=== PATIENT | male | born 1960 | race Caucasian/White ===

== ENCOUNTER 2022-05-08 07:42 | Outpatient (REF) | payer BC, SELFPAY ==
[2022-05-08 11:10] LABS: Hematocrit 43.9 % (42.0-52.0); Hemoglobin 15.3 g/dl (14.0-18.0); Mean Corpuscular HGB Conc 34.9 g/dl (31.0-36.0); Mean Corpuscular Hemoglobin 33.3 pg (27.0-33.0); Mean Corpuscular Volume 95.6 fL (80.0-98.0); Mean Platelet Volume 9.6 fL (9.4-12.4); Platelet Count 230 X10*3/uL (160-400); Red Blood Count 4.59 X10*6/uL (4.60-5.80); Red Cell Distribution Width 12.6 % (11.0-16.0); White Blood Count 6.8 X10*3/uL (4.8-10.8)
[2022-05-08 11:36] LABS: Alanine Aminotransferase 24 U/L (0-40); Albumin Level 4.2 g/dL (3.5-5.0); Alkaline Phosphatase 67 U/L (39-117); Anion Gap 14 (12-20); Aspartate Amino Transferase 18 U/L (5-37); Bilirubin Total 0.7 mg/dL (0.0-1.0); Blood Urea Nitrogen 16 mg/dL (9-16); Calcium 8.7 mg/dL (8.4-10.2); Carbon Dioxide 24 mmol/L (22-29); Chloride 108 mmol/L (96-108); Cholesterol 197 mg/dL; Estimated Glomerular Filt Rate > 60; Glucose Fasting 95 mg/dL (60-99); HDL Cholesterol 51 mg/dL; LDL Cholesterol Calculated 121 mg/dl; Potassium 4.5 mmol/L (3.3-5.1); Sodium 141 mmol/L (135-145); Total Protein 6.4 g/dL (6.5-8.0); Triglycerides 127 mg/dL
[2022-05-08 11:43] LABS: TSH reflex Free T4 1.42 uIU/mL (0.32-4.0); Vitamin D 25-OH Total 17.9 ng/mL (>30)
[2022-05-15 02:14] LABS: PSA, Ultra Sensitive 1.31 ng/mL
== END 2022-05-08 07:43 | disposition home or self-care (01) ==
LOC: HO.WFDLDS 07:42
PROVIDERS: Visit Provider Nurse Practitioner Family
DX: Z00.00 Encounter for general adult medical examination without abnormal findings (principal); Z12.5 Encounter for screening for malignant neoplasm of prostate
CPT/HCPCS: 36415; 80053; 80061; 82306; 84153; 84443; 85027

== ENCOUNTER 2022-10-08 08:00 | Outpatient (AMB) | payer BC, SELFPAY ==
--- NOTE | 2022-10-08 08:04 | A.OFFVIS_ITS ---
Intake Vital Signs 10/08/22 08:06 Height 6 ft Weight 228 lb BMI 30.9 BP 124/74 Blood Pressure Location Lt brachial Position Sitting Pulse 78 Intake Visit Reasons: colonoscopy screening Intake Note: Patient new consult for 2nd pre colonoscopy screening Patient denies any GI issues. 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 No weight loss PFSH Social History (Updated 10/08/22 @ 08:55 by Noni Chilel PA-C) Household Members Other:: 3 adult children Alcohol intake: current Tobacco use type: Cigar Current occupational status: employed Cognitive needs: No Hearing needs: No Vision needs: No Review of Systems Const All systems reviewed & are unremarkable except as noted in HPI and below Card Denies chest pain and Reports dyspnea on exertion Resp Reports chest congestion, Reports cough and Reports dyspnea on exertion GI Denies abdominal pain, Denies hematochezia, Denies change in bowel habits, Denie s heartburn, Denies nausea and Denies vomiting Physical Exam Vital Signs: Last Vital Signs Pulse 78 10/08/22 08:06 BP 124/74 10/08/22 08:06 BMI result Body Mass Index 30.9 Const General: cooperative, healthy appearing, comfortable and no acute distress Orientation/consciousness: patient oriented x3 Limitations: no limitations Eyes Sclerae: sclerae normal Resp Effort & Inspection: normal respiratory effort and able to speak in complete sentences Auscultation: rhonchi and no wheezes Cardio Rate: regular rate Rhythm: regular rhythm Heart sounds: S1 normal heart sound present and S2 normal heart sound present GI Palpation (GI): Soft to palpation and nontender Auscultation: normal bowel sounds Skin General skin exam: no rashes or lesions noted Neuro General: patient oriented x3 Extrem General: Yes full ROM Psych Appearance: grossly normal and well kempt Mental Status: mental status grossly normal Speech and movement: Normal speech and movement present and Clear speech present Affect: normal affect Attitude: cooperative Thought process: Normal thought process present Thought content: Normal thought content present Insight: Good insight present (Psych) Judgement: Good judgement present (Psych) Assessment & Plan Assessment & Plan (1) Encounter for screening colonoscopy: Comment: No GI complaint Code(s): Z12.11 - Encounter for screening for malignant neoplasm of colon Plan: Screening colonoscopy may need Anesthesia consult, MiraLax Gatorade prep- (2) Cough: Comment: Chronic cough Code(s): R05.9 - Cough, unspecified (3) SOB (shortness of breath): Comment: Intermittent shortness of breath-chest congestion-rhonchi on exam no wheezing Code(s): R06.02 - Shortness of breath Plan: CXR-will inform PCP, Myrna results available for review-(hopefully agreeable) Plan CXR-if clear proceed with- Screening colonoscopy, MiraLax Gatorade Patient Instructions: Very pleasant 62-year-old male referred for screening colonoscopy presents with chronic cough, shortness of breath on exertion, intermittent chest congestion. He does admit to anxiety when symptoms occur-however will get chest x-ray to be sure clear as he will be scheduled for screening colonoscopy-him to assure he is not at risk with anesthesia. Discussed procedure, risks, need for escort due to anesthesia as well as prep instructions Encouraged to follow-up with PCP-certainly with any worsening symptoms Call with any questions or concerns Appreciate the opportunity to assist in care of this pleasant Coding Level of Care Code New Pt Level 4 (55054) Diagnoses Encounter for screening colonoscopy Z12.11 Cough R05.9 SOB (shortness of breath) R06.02 Time Spent (min) 35
[2022-10-08 08:06] VITALS: BP 124/74; PULSE 78; BMI 30.9
== END 2022-10-09 14:51 | disposition home or self-care (01) ==
LOC: HO.HGIW 08:00
PROVIDERS: PCP Nurse Practitioner Family; Visit Provider Physician Assistant
DX: Z01.818 Encounter for other preprocedural examination (principal); Z12.11 Encounter for screening for malignant neoplasm of colon; R05.9 Cough, unspecified; R06.02 Shortness of breath
CPT/HCPCS: S0285

== ENCOUNTER → 2022-10-08 08:00 | Outpatient (BNVA) | payer BC, SELFPAY | PROVIDERS: PCP Nurse Practitioner Family; Visit Provider Physician Assistant ==

== ENCOUNTER 2022-11-06 08:52 | Outpatient (AMB) | payer BC, SELFPAY ==
[2022-11-06 08:56] VITALS: BP 138/84; PULSE 70; RESP 12; TEMP 36.2; O2SAT 99; BMI 31.6
--- NOTE | 2022-11-06 08:56 | MHC.PC.OV ---
Vital Signs 11/06/22 08:56 Height 6 ft Weight 233 lb 2 oz BMI 31.6 BP 138/84 Blood Pressure Location Rt brachial Position Sitting Respiration 12 Pulse 70 Pulse Source Pulse Oximeter Temp 97.1 F Temp Source Temporal Artery Scan Pulse Oximetry (%) 99 Oxygen Delivery Method Room Air Intake Visit Reasons: 6 months health maintenance Intake Note: Patient states that he has swelling in palms of hands and now his hands are starting to lock and sometimes it feels like he cant unlock them. Patient states that once they start to lock he unlocks them with the opposite hand. Patient believes its some type of arthritis. 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 Required: No Accompanied by: Self / Same As Patient Allergies No Known Allergies Allergy (Verified 11/06/22 09:25) Medication List - Last Reconciled 11/06/22 by Tati Rodriguez CNP No Known Home Meds Tobacco use date assessed: 05/07/22 Dental Screening Dental Screen Date: 11/06/22 Did you have a dental visit in the last 12 months?: No Did you have a dental problem in the last 6 months where you did not have access to dental care?: No Was dental information given to patient?: Patient has dentist HPI HPI Comments History of Present Illness Details 62-year-old male presents for health maintenance. He established care on 05/07/2022. He was seen by GI on 10/08/2022. He reported using OTC inhaler for chronic cough which started after he had covid x 2 between 2019 - 2020. He reported associated intermittent SOBOE, some days worse than others. He requested chest x-ray. GI plan: GI to proceed with colonoscopy if chest x-ray is normal. He reports continued intermitted cough with clear cough for the past 6 months. He has been smoking 1 cigar daily. He states he cut down on drinking and currently drinks 3 glasses of alcoholic beverages 2-3 times weekly. He reports intermittent swelling of his palms and pain and locking of his right 4th digit. Tylenol provides pain relief. He denies tingling, numbness, or loss of sensation. 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 Lee Pavon, Kim Altamirano, Alonso Thurston and colleagues, with an educational teresita from [employer]. Review of Systems Const Details: Const Denies chills, Denies fatigue, Denies fever(s), Denies headache(s) and Denies weakness ENT Denies dizziness and Denies headache(s) Card Denies chest pain, Denies lightheadedness, Denies dyspnea and Denies other (Palpitations) Resp Denies cough, Denies dyspnea, Denies wheezing and Denies other ( shortness of breath) GI Denies abdominal pain, Denies melena, Denies hematochezia, Denies change in bowel habits, Denies dyspepsia and Denies nausea Denies hematuria and Denies dysuria Musc Reports as per HPI Skin/Breast Denies rash, Denies unusual bruising and Denies wounds Neuro Denies abnormal gait, Denies dizziness, Denies headache(s), Denies memory loss, Denies numbness, Denies Sensory deficit (Neuro), Denies tingling and Denies weakness Psych Denies anxiety, Denies depression, Denies memory loss Endo Denies cold intolerance, Denies fatigue, Denies heat intolerance, Denies polydipsia and Denies polyuria Aller/Immun Denies wheezing Physical exam (Primary Care) Vital Signs: Last Vital Signs Temp 97.1 F 11/06/22 08:56 Pulse 70 11/06/22 08:56 Resp 12 11/06/22 08:56 BP 138/84 11/06/22 08:56 Pulse Ox 99 11/06/22 08:56 Oxygen Delivery Method Room Air 11/06/22 08:56 BMI result Body Mass Index 31.6 Tobacco/Smoking Status: Tobacco use Status Tobacco use date assessed 05/07/22 11/06/22 09:03 Patient Tobacco Use Status Former Tobacco user 11/06/22 09:07 Tobacco use type Cigar 11/06/22 09:03 e-Cigarette/Vaping Use Never Used 11/06/22 09:07 Thrive Assessment: Date of Thrive Assessment Date Thrive assessed 05/07/22 11/06/22 09:03 Const Other: General: no acute distress and well developed Nutritional Appearance: well nourished Orientation/consciousness: patient oriented x3 HENMT Head: Yes normocephalic and Yes atraumatic Eyes General: appearance normal, both eyes and all related structures Pupils: Equal, round and reactive pupils present EOM: EOMs intact bilaterally Resp Effort & Inspection: normal respiratory effort Auscultation: clear to auscultation bilaterally Cardio Rate: regular rate Rhythm: regular rhythm Heart sounds: S1 normal heart sound present, S2 normal heart sound present, no gallops, no murmurs and no rubs GI Palpation (GI): No Abdominal aortic bruit present, Soft to palpation, nontender, No hepatosplenomegaly present and No Rebound tenderness present Auscultation: normal bowel sounds General: Yes no CVA tenderness Back/Spine/Pelvis Back: no CVA tenderness Cervical Spine: cervical ROM normal and No Cervical spine tenderness Thoracic/Lumbar Spine: thoraco-lumbar ROM normal, No pain with thoraco-lumbar ROM, No thoracic spinal tenderness and No lumbar spinal tenderness Extrem General: Yes normal to inspection, and No calf tenderness. Mild edema to the palms immediately below the 2nd to 5th digits. Skin General: warm and dry. Normal skin color. Normal skin turgor Lesions: no lesions Rashes: no rashes Trauma: no lacerations or abrasions Wounds: no wounds Nails: normal Neuro General: patient oriented x3, gait normal and no focal neuro deficit Cranial nerves: Yes Equal, round and reactive pupils present Cognition (Neuro): normal cognition Gait exam (Neuro): Normal gait present Sensory Exam: No Sensory deficit (Neuro) Psych Appearance: grossly normal Affect: normal affect Attitude: cooperative Thought process: Normal thought process present Assessment and Plan Assessment & Plan (1) Cough: Comment: Chronic cough Code(s): R05.9 - Cough, unspecified Plan: He reports continued intermitted cough with clear cough for the past 6 months. He has been smoking 1 cigar daily. Lung sounds clear and equal bilaterally Ventolin ordered. Use as prescribed Chest x-ray ordered. Advised to contact GI for colonoscopy after getting chest x-ray done Encouraged to smoke smoking cigar Recent lab results reviewed with the patient Follow-up in 6 months for complete physical exam Return sooner with worsening or new symptoms Verbalized understanding and agreed with treatment plan. (2) Bilateral hand pain: Code(s): M79.641 - Pain in right hand; M79.642 - Pain in left hand Plan: He reports intermittent swelling of his palms and pain and locking of his right 4th digit. Mild edema to the palms immediately below the 2nd to 5th digits. Likely degenerative changes or arthritis May take Tylenol ibuprofen for pain or discomfort Warm/cold compresses encouraged Referred to Ortho Return with new or worsening signs and symptoms Verbalized understanding and agreed with treatment plan. Orders: Orders XR chest 2V Today R05.9 - Cough, unspecified Referrals Orthopedics Referral M79.641 - Pain in right hand, M79.642 - Pain in left hand Medications: New albuterol sulfate 90 mcg/actuation (Ventolin HFA) 2 puffs inhalation Q4-6H PRN 8.5 grams 3RF shortness of breath or wheezing Coding Level of Care Code Est Pt Level 4 (12030) Diagnoses Cough R05.9 Bilateral hand pain M79.641; M79.642
== END 2022-11-06 09:47 | disposition home or self-care (01) ==
PROVIDERS: PCP Nurse Practitioner Family; Visit Provider Nurse Practitioner Family
DX: R05.9 Cough, unspecified (principal); M79.641 Pain in right hand; M79.642 Pain in left hand
CPT/HCPCS: 99214

== ENCOUNTER 2022-11-11 10:56 | Outpatient (REF) | payer BC, SELFPAY ==
--- NOTE | ~2022-11-11 | XR_ITS ---
EXAMINATION: XR CHEST 2 VIEWS CLINICAL INFORMATION: Cough. COMPARISON: None. TECHNIQUE: Frontal and lateral views of the chest were obtained. FINDINGS: The heart, great vessels, pulmonary vasculature and mediastinum are normal. The lungs show no focal infiltrate, effusion or pneumothorax. There is no acute osseous abnormality. There is multi-level thoracic spondylosis. XR/XR chest 2V IMPRESSION: No active cardiopulmonary disease.
== END 2022-11-11 10:57 | disposition home or self-care (01) ==
LOC: HO.XRAY 10:56
PROVIDERS: PCP Nurse Practitioner Family; Visit Provider Nurse Practitioner Family
DX: R05.9 Cough, unspecified (principal)
CPT/HCPCS: 71046

== ENCOUNTER 2023-04-22 09:47 | Outpatient (AMB) | payer BC, SELFPAY ==
[2023-04-22 10:06] VITALS: BMI 31.6
--- NOTE | 2023-04-22 10:06 | MHC.OFFVIS ---
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 States his right is worse than his left. Discomfort is mainly by his thumb. States he has a growth by his CMC joint. States he noticed this about 1 year ago and size has been the same. No pain just discomfort at times.Denies injury, numbness or tingling. Also reports his left hand at base of ring finger has been franklin and cramping inward. His ring finger that was locking about 2 year ago and has improved about 1 month ago. 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 He reports having a mass at the base of his right thumb, which he says has been present for ~1 year now. He says this is able to move slightly and has not changed in size. He says this causes some discomfort but denies any pain. He reports having issues with his left ring finger locking & catching. He says this was present for several months but resolved on its own ~1 month ago. He also feels he has a cord in his left hand, in his palm at the base of his ring finger. He denies any contractures. He reports having a history of hand & finger cramping at times, he says this has improved but he thinks this may be related to being dehydrated. 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 [facility] Medical History (Updated 04/22/23 @ 10:28 by Kedar Campos) No pertinent past medical history Surgical History No pertinent past surgical history Family History Other Substance abuse Social History (Updated 04/22/23 @ 10:13 by JULIUS Dooley) Household Members Other:: 3 adult children Housing: House Alcohol intake: current Patient Tobacco Use Status: Former Tobacco user Tobacco use type: Cigar e-Cigarette/Vaping Use: Never Used service: No Current occupational status: employed Current occupation: [employer]/ rt hand Cognitive needs: No Hearing needs: No Vision needs: No Review of Systems Const All systems reviewed & are unremarkable except as noted in HPI and below Physical Exam Vital Signs: BMI result Body Mass Index 31.6 Const General: cooperative, healthy appearing and no acute distress Orientation/consciousness: patient oriented x3 HEENT Head: Yes normocephalic and Yes atraumatic Eyes EOM: EOMs intact bilaterally Resp Effort & Inspection: normal respiratory effort and able to speak in complete sentences Cardio Jugular venous distension: no JVD Skin General skin exam: turgor normal Rashes: no rashes Neuro General: patient oriented x3 Extrem Other: Evaluation of Bilateral Upper Extremity: The patient is alert, oriented, and in no acute distress Neuro: Median, Ulnar, Radial nerves motor and sensory intact and sensation is normal to the tips of all digits Vascular: Cap refill brisk ROM: He can make a fist and extend all his digits No locking or catching Skin: No lacerations or abrasions. General: No Ecchymosis. No Erythema or evidence of infection. He has a soft tissue mass, measuring ~1cm*6-8mm in size. This may also be an area of thickness over the 1st dorsal compartment tendons over the dorsal aspect of the proximal phalanx. The patient notes that the mass has been there and not changed in size for at least a couple of years. 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 Left ring finger trigger finger Main reason for appointment today Patient reports this resolved on its own several weeks ago No intervention warranted He can follow up prn 2. Right thumb mass Measuring ~1cm by 6-8mm in size Over the EPB tendon as it passes over the proximal phalanx This is not painful and has been present for 2-3 years without changes in size He has good function and ROM of his thumb and this is not particularly bothersome for him He is not interested in having it removed at this time If this changes in size or he develops any pain, he can follow up to discuss treatment Otherwise follow-up prn 3. Left hand Dupuytrens cord In the palm, directed towards the small finger No evidence of contracture I educated him about this condition No intervention warranted at this time I recommend he work on maintaining his ROM He can follow up prn Scribed for Brooke Garcia MD by Kedar Campos, medical chief technician, on 04/22/23 at 10:25 AM, EST. 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
== END 2023-04-22 10:36 | disposition home or self-care (01) ==
PROVIDERS: PCP Nurse Practitioner Family; Visit Provider Orthopaedic Surgery
DX: R22.31 Localized swelling, mass and lump, right upper limb (principal); M72.0 Palmar fascial fibromatosis [Dupuytren]
CPT/HCPCS: 99203

== ENCOUNTER → 2023-04-22 09:47 | Outpatient (BNVA) | payer BC, SELFPAY | PROVIDERS: PCP Nurse Practitioner Family; Visit Provider Orthopaedic Surgery ==

== ENCOUNTER 2023-06-24 07:31 | Day surgery (SDC) | payer BC, SELFPAY ==
[2023-06-20 14:14] VITALS: BMI 30.9
--- NOTE | 2023-06-23 14:23 | P.CONAN_ITS ---
Documented by User: Shelia Del Real NP 06/23/23 14:25 HPI - Anesthesia Eval Consult details Narrative: 63yo M for Colonoscopy PMFSH Active Problems Active Problems: All Active Problems (Updated 04/22/23 @ 10:28 by Kedar Campos) Mass of right hand (Acute) Dupuytren's disease of palm of left hand (Acute) Trigger finger, left ring finger (Acute) Bilateral hand pain (Acute) Cough (Acute) SOB (shortness of breath) (Acute) Vaccine counseling (Acute) Encounter for screening colonoscopy (Acute) Physical exam, annual (Acute) Laboratory tests ordered as part of a complete physical exam (CPE) (Acute) Past Medical History Medical History No pertinent past medical history Family History Family History Other Substance abuse Surgical History Surgical History No pertinent past surgical history Social History Social History Household Members Other:: 3 adult children Housing: House Alcohol intake: current Patient Tobacco Use Status: Current everyday Tobacco user Tobacco use type: Cigar e-Cigarette/Vaping Use: Never Used Use of substances other than those prescribed or required for medical reasons: No Are you DNR?: No Advance Directives: No Advance Directives Information Provided: Yes service: No Current occupational status: employed 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 Cognitive needs: No Hearing needs: No Vision needs: No Meds Allergies Allergy/AdvReac Type Severity Reaction Status Date / Time No Known Allergies Allergy Verified 04/22/23 10:12 Exam Height,Weight and Vital Signs: Height 6 ft Weight 103.419 kg Assessment and Plan Assessment Anesthesia Assessment: Chart Reviewed Documented by User: Daily Miramontes MD 06/24/23 08:15 PMFSH Active Problems Active Problems: All Active Problems (Updated 06/24/23 @ 08:05 by Daily Miramontes MD) Mass of right hand (Acute) Dupuytren's disease of palm of left hand (Acute) Trigger finger, left ring finger (Acute) Bilateral hand pain (Acute) Cough (Acute) SOB (shortness of breath) (Acute) Vaccine counseling (Acute) Encounter for screening colonoscopy (Acute) Physical exam, annual (Acute) Laboratory tests ordered as part of a complete physical exam (CPE) (Acute) Smoker Past Medical History Medical History No pertinent past medical history Family History Family History Other Substance abuse Family history of problems with anesthesia: No Surgical History Surgical History No pertinent past surgical history History of Problems with Anesthesia: No Social History Social History Household Members Other:: 3 adult children Housing: House Alcohol intake: current Patient Tobacco Use Status: Current everyday Tobacco user Tobacco use type: Cigar e-Cigarette/Vaping Use: Never Used Use of substances other than those prescribed or required for medical reasons: No Are you DNR?: No Advance Directives: No Advance Directives Information Provided: Yes service: No Current occupational status: employed 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 Denies broken, loose, missing teeth) Heart: RRR Lungs: CTAB Assessment and Plan Assessment Anesthesia Assessment: Anesthesia Plan Discussed Final Anesthetic Review Family History of Problems with Anesthesia: No History of Problems with Anesthesia: No NPO: Yes ASA Class: II Final Preanesthetic Review: No Changes in Pt Med Stat, Meds/Allgs Chart Reviewed, Consent Obtained/Reviewed and Anes Risks/Benef Reviewed Patient Risk: Intermediate Procedure Risk: Low Assessment/Block/Sedation in SS: Assess/Block/Sedation-SS Anesthetic Plan Anesthetic Plan: MAC: and TIVA Disposition: Standard PACU
[2023-06-24 08:08] VITALS: BP 114/75; PULSE 80; RESP 16; TEMP 36.8; O2SAT 96
[2023-06-24] MEDS: Lactated Ringers 1,000 ML 100 ML IVCONT (08:20)
--- NOTE | 2023-06-24 08:24 | P.HPSUR_ITS ---
Pre-Procedural Eval Section A - 24 Hr Update-Section A only Date of Service: 06/24/23 Section B - Complete if H&P > 30 days Chief Complaint: screening Relevant Family History (Specify if Yes): No Relevant Social History: Tobacco Use Present Medications: None Medical History: No relevant PMH History of Previous Operations: No relevant previous surgery Allergies: Allergies Allergy/AdvReac Type Severity Reaction Status Date / Time No Known Allergies Allergy Verified 04/22/23 10:12 Review of Systems Sugical H&P ROS: Negative: Constitution, Cardiovascular, Respiratory, Neurological, Psychiatric, Hem-Onc, Allergic/Immunologic, Gastrointestinal, Genitourinary, Musculoskeletal, Integumentary, Endocrine and Eyes/Ears/Nose/Throat Exam Surgical H&P Exam: Normal: HEENT, Normal: Heart, Normal: Lungs, Normal: Ext remities, Normal: Abdomen, Normal: Skin and Normal: Neurological Plan Diagnosis/Plan: Unchanged I have reviewed the history and physical and performed a pertinent physical examination on my patient. No changes have occurred unless specified. Time Spent With Patient Time: Total time managing care of this patient today ____ minutes.
--- NOTE | 2023-06-24 08:24 | W.PM.OPN ---
Operative Note Operative Note Date of Service: 06/24/23 Narrative: Operative Information Procedure Description: Colonoscopy Indication: screening Anesthesia: MAC COLONOSCOPY Instrument: Olympus variable stiffness pediatric scope 190L Colonoscopy Monitoring: Vital signs and clinical assessment, continuous EKG monitoring, Pulse oximetry, Carbon Dioxide monitoring and blood pressure monitoring were done throughout the procedure. Colon withdrawal time was 12 minutes. Procedure: The patient was placed in the left lateral decubitis position and pre-procedure medications were administered. After a digital rectal examination of the ano-rectum, the video colonoscope was inserted into the rectum and advanced through the colon to the cecum/TI. The colonoscope was slowly withdrawn in a retrograde panoramic fashion and the colon mucosa was carefully examined including a retroflexed view of the rectum. Findings and interventions are described below. Procedure Difficulty: easy Findings: Terminal Ileum-normal Cecum:normal Ascending Colon: normal Transverse Colon -normal Descending Colon:normal Sigmoid Colon: mild diverticulosis Rectum: Retroflexion with small internal hemorrhoids seen, grade I, x2 sessile polyps 4-5 mm removed with cold forceps and x1 sessile polyp 8-10 mm removed with cold snare Anorectum - normal Intervention: cold snare and biopsy forceps Colon preparation: [place] Bowel Preparation Scale Right colon; 2 Transverse colon: 2 Left colon; 2 (0 = Unprepared colon segment with mucosa not seen due to solid stool that cannot be cleared. 1 = Portion of mucosa of the colon segment seen, but other areas of the colon segment not well seen due to staining, residual stool and/or opaque liquid. 2 = Minor amount of residual staining, small fragments of stool and/or opaque liquid, but mucosa of colon segment seen well. 3 = Entire mucosa of colon segment seen well with no residual staining, small fragments of stool or opaque liquid) Impression and Post Procedure Diagnosis: diverticulosis colon polyps internal hemorrhoids Plan: High fiber diet leaflet Avoid straining at stool, epsom salts and sitz bath, anusol supps or cream Repeat Colonoscopy in 5 years if adenomatous polyps, 10 yrs if hyperplastic or earlier if clinically indicated Above findings were reviewed with the patient and relevant handouts were provided if indicated.
[2023-06-24 09:03] VITALS: BP 111/65; PULSE 71; RESP 18; TEMP 36.3; O2SAT 95
[2023-06-24 09:18] VITALS: BP 131/85; PULSE 64; RESP 16; TEMP 36.3; O2SAT 98
== END 2023-06-24 09:50 | disposition home or self-care (01) ==
PROVIDERS: Visit Provider Internal Medicine Gastroenterology
PROC: 0DJD8ZZ Inspection of Lower Intestinal Tract, Via Natural or Artificial Opening Endoscopic (ICD-10-PCS; CPT 45378; principal; 2023-06-24 09:20)
DX: Z12.11 Encounter for screening for malignant neoplasm of colon (principal); K62.1 Rectal polyp; K57.30 Diverticulosis of large intestine without perforation or abscess without bleeding; K64.0 First degree hemorrhoids; R05.3 Chronic cough; R06.02 Shortness of breath
CPT/HCPCS: 45385; 45380; 88305; J2704

== ENCOUNTER → 2023-06-24 07:31 | Outpatient (BNV) | payer BC, SELFPAY | PROVIDERS: Visit Provider Internal Medicine Gastroenterology | DX: Z12.11 Encounter for screening for malignant neoplasm of colon (principal); K62.1 Rectal polyp; K57.30 Diverticulosis of large intestine without perforation or abscess without bleeding; K64.0 First degree hemorrhoids | CPT/HCPCS: 45380; 45385 ==

== ENCOUNTER 2024-03-26 09:19 | Outpatient (AMB) | payer BC, SELFPAY ==
--- NOTE | 2024-03-26 10:22 | AM.OFFWIN_ITS ---
Intake Vital Signs 03/26/24 10:24 Height 6 ft Weight 242 lb BMI 32.8 BP 130/86 Blood Pressure Location Lt brachial Position Sitting Pulse 81 Pulse Source Pulse Oximeter Temp 98.0 F Temp Source Oral Pulse Oximetry (%) 98 Oxygen Delivery Method Room Air Intake Visit Reasons: EP cold symptoms Intake Note: Pt is here today nasal congestion x2.5 wks, coughing Patient Tobacco Use Status: Current everyday Tobacco user Allergies No Known Allergies Allergy (Verified 03/26/24 10:24) HPI HPI Comments History of Present Illness Details History - The patient is a 63-year-old male pres enting with sore throat, cough, and nasal congestion. - He reports a duration of symptoms exte nding two and a half weeks, starting with a sore throat and progressing to chest and sinus congestion. - Patient experienced a persistent cough with accompanying sinus headaches and nighttime shortness of breath. - Medications such as Mucinex have been used, providing minimal symptomatic relief. - Flonase has been beneficial in the pas t, though not recently utilized. - Congestion worsens in the evening but some improvement observed in recent days. - Patient smokes cigars, no history of a sthma or Chronic Obstructive Pulmonary Disease. Physical Exam General: Cooperative, healthy appearing, comfortable and no acute distress Orientation/consciousness: Patient oriented x3 Limitations: No limitations Head: Normal to inspection Ears: Hearing grossly normal bilaterally, external ears normal, TMs normal bilat erally, slight erythema right TM Nose: Normal external nose present, Normal nares present and nasal discharge present Face and sinus: Normal facial exam and Yes sinuses tender Mouth: Normal oral and palatal mucosa present and moist mucous membranes Throat: Yes tonsils normal, Yes uvula midline. Posterior oropharynx erythema present Eyes: Appearance normal, both eyes and all related structures Neck: Normal visual inspection Respiratory: Clear to auscultation bilaterally. Normal respiratory effort, able to speak in complete sentences, Actively coughing, no respiratory distress, not tachypneic, no tripod positioning and no use of accessory muscles Cardiovascular: Regular rate and rhythm. 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 Cognitive needs: No Hearing needs: No Vision needs: No Review of Systems Const All systems reviewed & are unremarkable except as noted in HPI and below Physical Exam Vital Signs: Last Vital Signs Temp 98.0 F 03/26/24 10:24 Pulse 81 03/26/24 10:24 BP 130/86 03/26/24 10:24 Pulse Ox 98 03/26/24 10:24 Oxygen Delivery Method Room Air 03/26/24 10:24 BMI result Body Mass Index 32.8 Assessment & Plan Assessment & Plan (1) Sinusitis, acute: Code(s): J01.90 - Acute sinusitis, unspecified Qualifiers: Sinusitis location: frontal Recurrence: non-recurrent Qualified Code(s): J01.10 - Acute frontal sinusitis, unspecified Plan: Plan Testing for COVID-19 and RSV will be conducted to exclude viral upper respiratory infections given the presenting symptoms' duration and nature. Should these viral tests result negative, and considering the persistence of symptoms particularly with the character of the nasal discharge and continuous cough, we strongily suspect a bacterial infection. An antibiotic prescription will be prepared to treat a suspected bacterial sinusitis. This approach will cover the noted symptoms efficiently, particularly if they are bacterial in origin. Chronic condition management is to be followed up with the patient's primary physician. Patient was informed and verbally consented to the use of an ambient scribe for clinic note documentation during this visit Orders: Orders SARS-CoV2/FLU/RSV Today J06.9 - Acute upper respiratory infection, unspecified Coding Level of Care Code Est Pt Level 3 (93329) Diagnoses Acute non-recurrent frontal sinusitis J01.10 Sinusitis location: frontal Recurrence: non-recurrent
[2024-03-26 10:24] VITALS: BP 130/86; PULSE 81; TEMP 36.7; O2SAT 98; BMI 32.8
== END 2024-03-26 10:48 | disposition home or self-care (01) ==
PROVIDERS: PCP Nurse Practitioner Family; Visit Provider Physician Assistant
DX: J01.10 Acute frontal sinusitis, unspecified (principal)

== ENCOUNTER 2024-03-26 09:19 | Outpatient (REF) | payer BC, SELFPAY ==
[2024-03-26 14:12] LABS: Influenza A PCR NEGATIVE (Negative); Influenza B PCR NEGATIVE (Negative); Resp Syncy Virus RNA Qual PCR NEGATIVE (Negative); SARS COV2 PCR INHOUSE NEGATIVE (Negative)
== END 2024-03-26 09:20 | disposition home or self-care (01) ==
LOC: HO.LAB 09:19
PROVIDERS: Physician Assistant; PCP Nurse Practitioner Family
DX: J06.9 Acute upper respiratory infection, unspecified (principal)
CPT/HCPCS: 0241U

== ENCOUNTER 2024-10-18 12:47 | Outpatient (AMB) | payer BC, SELFPAY ==
--- NOTE | 2024-10-18 12:49 | A.OFFVIS_ITS ---
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
--- NOTE | 2024-10-18 12:53 | MHC.PC.OV ---
Vital Signs 10/18/24 12:54 Height 6 ft Weight 231 lb 6 oz BMI 31.4 BP 133/74 Blood Pressure Location Rt brachial Position Sitting Respiration 16 Pulse 69 Pulse Source Pulse Oximeter Temp 98.7 F Temp Source Oral Pulse Oximetry (%) 97 Oxygen Delivery Method Room Air Intake Visit Reasons: Abdominal pain Intake Note: patient here c/o abdominal pain on and off for 6 months. Certified Registered Nurse Anesthetist Required: No Allergies No Known Allergies Allergy (Verified 10/18/24 13:17) Medication List - Last Reconciled 10/18/24 by Tati Rodriguez CNP No Known Home Meds Tobacco use date assessed: 10/18/24 Dental Screening Dental Screen Date: 10/18/24 Did you have a dental visit in the last 12 months?: Yes Did you have a dental problem in the last 6 months where you did not have access to dental care?: No Was dental information given to patient?: Patient has dentist HPI HPI Comments History of Present Illness Details 64-year-old male presents with complaints of intermittent achy/sore pain to his right and left upper quadrant, radiating to his mid back. His symptoms last for 2-3 days, every 1-2 months, for the past 6 months. Improving his diet and cutting down on his alcohol intake resolve his symptoms; adequate rest also provide relief. He denies associated burning sensation, nausea, vomiting, or bowel changes. He has been eating healthier, avoiding fried or greasy foods. He drinks 3-4 glasses of wine or vodka 4 times weekly; he has been maintained his drinking pattern for several years. He smokes 2 cigars daily and has been smoking for several years. He requests treatment for alcohol cravings at this time. He will consider treatment for nicotine dependence. He denies acute symptoms at this time. 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 1. Little interest or pleasure in doing things: not at all 2. Feeling down, depressed, or hopeless: not at all 3. Trouble falling or staying asleep, or sleeping too much: not at all 4. Feeling tired or having little energy: not at all 5. Poor appetite or overeating: not at all 6. Feeling bad about yourself - or that you are a failure or have let yourself or your family down: not at all 7. Trouble concentrating on things, such as reading the newspaper or watching television: not at all 8. Moving or speaking so slowly that other people could have noticed. Or the opposite - being so fidgety or restless that you have been moving around a lot more than usual: not at all 9. Thoughts that you would be better off or of hurting yourself in some way: not at all Total score: 0 Depression Screening Interpretation: Negative Depression Screening Done: Yes Source: Developed by Drs. Lee Pavon, Kim Altamirano, Alonso Thurston and colleagues, with an educational teresita from [employer]. Thrive Questionnaire Date Thrive assessed: 10/12/24 I am a: Patient What is your living situation today?: I have a steady place to live Within the past 12 months, did the food you bought not last and you didn't have the money to get more?: Never true Within the past 12 months, did you worry whether your food would run out before you got money to buy more?: Never true Do you have trouble paying for medicines?: No Do you have trouble getting transportation to medical appointments?: No Do you have trouble paying your heating and electricity bill?: No Do you have trouble taking care of your child, family member or friend?: No Do you have trouble with day-to-day activities such as bathing, preparing meals, shopping, managing finances, etc.?: No Are you currently unemployed and looking for a job?: No Are you interested in more education?: No Please select the resources that you would like help with: None Currently or been in a relationship where the following occur: No concerns reported THRIVE Score: 0 AUDIT C Alcohol Use Questionnaire (AUDIT-C) 1. How often do you have a drink containing alcohol?: 4 or more times a week 2. How many drinks containing alcohol do you have on a typical day when you are drinking?: 3 or 4 3. How often do you have six or more drinks on one occasion?: Monthly Total Score: 7 Score Reviewed/Action Taken: Yes WILLIE-7 AMB Questionnaire WILLIE-7 Date WILLIE - 7 assessed: 05/07/22 Feeling nervous, anxious, or on edge: 0 = Not at all Not being able to stop or control worryin = Not at all Worrying too much about different things: 0 = Not at all Trouble relaxin = Not at all Being so restless that it is hard to sit still: 0 = Not at all Becoming easily annoyed or irritable: 0 = Not at all Feeling afraid as if something awful might happen: 0 = Not at all Total WILLIE-7 score (0-4 normal; 5-9 mild; 10-14 moderate; 15-21 severe): 0 Source: Developed by Drs. Lee Pavon, Kim Altamirano, Alonso Thurston and colleagues, with an educational teresita from [employer]. Review of Systems Const Details: Const Denies chills, Denies fatigue, Denies fever(s), Denies headache(s) and Denies weakness ENT Denies dizziness and Denies headache(s) Card Denies chest pain, Denies lightheadedness, Denies dyspnea and Denies other (Palpitations) Resp Denies cough, Denies dyspnea, Denies wheezing and Denies other ( shortness of breath) GI Denies abdominal pain, Denies melena, Denies hematochezia, Denies change in bowel habits, Denies dyspepsia and Denies nausea Denies hematuria and Denies dysuria Musc Denies abnormal gait, Denies myalgias, Denies arthralgias, Denies numbness and Denies tingling Skin/Breast Denies rash, Denies unusual bruising and Denies wounds Neuro Denies abnormal gait, Denies dizziness, Denies headache(s), Denies memory loss, Denies numbness, Denies Sensory deficit (Neuro), Denies tingling and Denies weakness Psych Denies anxiety, Denies depression, Denies memory loss Endo Denies cold intolerance, Denies fatigue, Denies heat intolerance, Denies polydipsia and Denies polyuria Aller/Immun Denies wheezing Physical exam (Primary Care) Vital Signs: Last Vital Signs Temp 98.7 F 10/18/24 12:54 Pulse 69 10/18/24 12:54 Resp 16 10/18/24 12:54 BP 133/74 10/18/24 12:54 Pulse Ox 97 10/18/24 12:54 Oxygen Delivery Method Room Air 10/18/24 12:54 BMI result Body Mass Index 31.4 Tobacco/Smoking Status: Tobacco use Status Tobacco use date assessed 10/18/24 10/18/24 12:59 Patient Tobacco Use Status Current everyday Tobacco 10/18/24 12:59 Tobacco use type Cigar 10/18/24 12:59 e-Cigarette/Vaping Use Never Used 10/18/24 12:59 PHQ-9: PHQ-9 Score PHQ-9: Total score 0 10/18/24 13:19 Depression Screening Interpretation: Negative Thrive Assessment: Date of Thrive Assessment Date Thrive assessed 10/12/24 10/18/24 12:59 Currently or been in a relationship where the following occur: No concerns reported Const Other: General: no acute distress and well developed Nutritional Appearance: well nourished Orientation/consciousness: patient oriented x3 HENMT Head: Yes normocephalic and Yes atraumatic Eyes General: appearance normal, both eyes and all related structures Pupils: Equal, round and reactive pupils present EOM: EOMs intact bilaterally Resp Effort & Inspection: normal respiratory effort Auscultation: clear to auscultation bilaterally Cardio Rate: regular rate Rhythm: regular rhythm Heart sounds: S1 normal heart sound present, S2 normal heart sound present, no gallops, no murmurs and no rubs GI Palpation (GI): No Abdominal aortic bruit present, Soft to palpation, nontender, No hepatosplenomegaly present and No Rebound tenderness present Auscultation: normal bowel sounds General: Yes no CVA tenderness Back/Spine/Pelvis Back: no CVA tenderness Cervical Spine: cervical ROM normal and No Cervical spine tenderness Thoracic/Lumbar Spine: thoraco-lumbar ROM normal, No pain with thoraco-lumbar ROM, No thoracic spinal tenderness and No lumbar spinal tenderness Extrem General: Yes normal to inspection, No edema and No calf tenderness Skin General: warm and dry. Normal skin color. Normal skin turgor Lesions: no lesions Rashes: no rashes Trauma: no lacerations or abrasions Wounds: no wounds Nails: normal Neuro General: patient oriented x3, gait normal and no focal neuro deficit Cranial nerves: Yes Equal, round and reactive pupils present Cognition (Neuro): normal cognition Gait exam (Neuro): Normal gait present Sensory Exam: No Sensory deficit (Neuro) Psych Appearance: grossly normal Affect: normal affect Attitude: cooperative Thought process: Normal thought process present Coding Level of Care Code Est Pt Level 4 (89759) Diagnoses Abdominal pain R10.9 Alcohol use disorder F10.90 Nicotine dependence F17.200 Laboratory tests ordered as part of a complete physical exam (CPE) Z00.00 Assessment & Plan Assessment & Plan (1) Abdominal pain: Code(s): R10.9 - Unspecified abdominal pain Category: Medical Plan: 64-year-old male presents with complaints of intermittent achy/sore pain to his right and left upper quadrant, radiating to his mid back. His symptoms last for 2-3 days, every 1-2 months, for the past 6 months. Improving his diet and cutting down on his alcohol intake resolve his symptoms; adequate rest also provide relief. He denies associated burning sensation, nausea, vomiting, or bowel changes. He has been eating healthier, avoiding fried or greasy foods. He drinks 3-4 glasses of wine or vodka 4 times weekly; he has been maintained his drinking pattern for several years. He smokes 2 cigars daily and has been smoking for several years. He requests treatment for alcohol cravings at this time. He will consider treatment for nicotine dependence. No acute symptoms at this time. Abdomen is soft, nontender, nondistended, active bowel sounds signs x4. Likely related to poor diet, excessive alcohol intake, or nicotine dependence. Differentials include gastritis, pancreatitis, gastric ulcer, or duodenal ulcer. Will check labs including lipase. Healthy diet and routine exercise encouraged. Advised to cut down or significantly reduce alcohol intake to no more than 2 drinks daily or 5 drinks weekly. Smoking cessation encouraged. Denies opioid use for at least 2 weeks. Naltrexone 15 mg daily ordered for alcohol cravings; advised to take as prescribed. Instructed on the risks, benefits, and potential adverse reactions of the medication. Perform lab work for next visit. Follow-up in 1 month for alcohol use disorder and labs review. Rreturn sooner with symptoms or concerns. Verbalized understanding and agreed with the treatment plan. (2) Alcohol use disorder: Code(s): F10.90 - Alcohol use, unspecified, uncomplicated Category: Medical Plan: Plan as above. (3) Nicotine dependence: Code(s): F17.200 - Nicotine dependence, unspecified, uncomplicated Category: Medical Plan: Plan as above. (4) Laboratory tests ordered as part of a complete physical exam (CPE): Code(s): Z00.00 - Encounter for general adult medical examination without abnormal findings Category: Medical Plan: Fasting labs ordered as part of a complete physical exam. Advised to fast for at least 10 hours before getting labs drawn. May drink water Verbalized understanding and agreed with treatment plan. Orders: Orders Complete Blood Count Auto Diff Today R10.9 - Unspecified abdominal pain, Z00.00 - Encounter for general adult medical examination without abnormal findings Microalbumin, Random (w Creat) Today Z00.00 - Encounter for general adult medical examination without abnormal findings PSA, Ultra Sensitive Today Z00.00 - Encounter for general adult medical examination without abnormal findings Vitamin D 25-OH Total Today Z00.00 - Encounter for general adult medical examination without abnormal findings Lipase Today R10.9 - Unspecified abdominal pain Comprehensive Debary. Panel Fast Today R10.9 - Unspecified abdominal pain, Z00.00 - Encounter for general adult medical examination without abnormal findings Lipid Panel Today Z00.00 - Encounter for general adult medical examination without abnormal findings TSH reflex Free T4 Today Z00.00 - Encounter for general adult medical examination without abnormal findings UA CC w/rflx Micro + Cult Today Z00.00 - Encounter for general adult medical examination without abnormal findings Medications: New naltrexone 25 mg (1/2 x 50 mg) PO DAILY 15 tabs 3RF 30 days
[2024-10-18 12:54] VITALS: BP 133/74; PULSE 69; RESP 16; TEMP 37.1; O2SAT 97; BMI 31.4
== END 2024-10-18 13:44 | disposition home or self-care (01) ==
LOC: HO.HMCFM 12:48
PROVIDERS: PCP Nurse Practitioner Family; Visit Provider Nurse Practitioner Family
DX: R10.9 Unspecified abdominal pain (principal); F10.90 Alcohol use, unspecified, uncomplicated; F17.200 Nicotine dependence, unspecified, uncomplicated; Z00.00 Encounter for general adult medical examination without abnormal findings

== ENCOUNTER 2024-11-15 09:27 | Outpatient (REF) | payer BC, SELFPAY ==
[2024-11-15 11:32] LABS: MANUAL DIFF FLAG NO
[2024-11-15 11:36] LABS: Hematocrit 45.7 % (42.0-52.0); Hemoglobin 15.8 g/dl (14.0-18.0); Imm Gran Abs Auto 0.02 X10*3/uL (0.00-0.03); Imm Gran Pct Auto 0.4 % (0.0-0.4); Lymphocytes Absolute Auto 1.3 X10*3/uL (1.2-4.9); Mean Corpuscular HGB Conc 34.6 g/dl (31.0-36.0); Mean Corpuscular Hemoglobin 34.1 pg (27.0-33.0); Mean Corpuscular Volume 98.7 fL (80.0-98.0); NRBC Abs Auto 0.000 X10*3/uL (0.0-0.012); NRBC Pct Auto 0.0 /100WBC (0.0-0.2); Platelet Count 228 X10*3/uL (160-400); Red Blood Count 4.63 X10*6/uL (4.60-5.80); White Blood Count 4.7 X10*3/uL (4.8-10.8)
[2024-11-15 12:08] LABS: Alanine Aminotransferase 26 U/L (0-40); Albumin Level 4.6 g/dL (3.5-5.0); Alkaline Phosphatase 80 U/L (39-117); Anion Gap 12 (12-20); Aspartate Amino Transferase 27 U/L (5-37); Blood Urea Nitrogen 17 mg/dL (9-16); Calcium 9.1 mg/dL (8.4-10.2); Carbon Dioxide 27 mmol/L (22-29); Chloride 106 mmol/L (96-108); Cholesterol 222 mg/dL (<200); Estimated Glomerular Filt Rate > 60; HDL Cholesterol 49 mg/dL (>40); Lipase 22 U/L (8-78); Potassium 4.7 mmol/L (3.3-5.1); Sodium 140 mmol/L (135-145); Total Protein 7.0 g/dL (6.5-8.0); Triglycerides 107 mg/dL (<150)
[2024-11-15 14:26] LABS: Appearance Urine Clear; Glucose Urine UA Negative (Negative); PH 5.5 (5.0-9.0); Specific Gravity - Urine 1.020 (1.005-1.025)
[2024-11-22 15:48] LABS: PSA, Ultra Sensitive 0.80 ng/mL
== END 2024-11-15 09:28 | disposition home or self-care (01) ==
LOC: HO.WFDLDS 09:27
PROVIDERS: Visit Provider Nurse Practitioner Family
DX: Z00.00 Encounter for general adult medical examination without abnormal findings (principal); R10.9 Unspecified abdominal pain; Z12.5 Encounter for screening for malignant neoplasm of prostate; Z13.6 Encounter for screening for cardiovascular disorders
CPT/HCPCS: 36415; 80053; 80061; 81003; 82306; 82570; 83690; 84153; 84443; 85025

== ENCOUNTER 2024-11-23 10:12 | Outpatient (AMB) | payer BC, SELFPAY ==
--- NOTE | 2024-11-23 10:15 | MHC.PC.OV ---
Vital Signs 11/23/24 10:22 Height 6 ft Weight 231 lb BMI 31.3 BP 129/69 Blood Pressure Location Rt brachial Position Sitting Respiration 16 Pulse 74 Pulse Source Pulse Oximeter Temp 97.8 F Temp Source Oral Pulse Oximetry (%) 98 Oxygen Delivery Method Room Air Intake Visit Reasons: CPE Intake Note: patient here for CPE Advanced Practice Nurse Required: No Allergies No Known Allergies Allergy (Verified 11/23/24 10:29) Medication List - Last Reconciled 11/23/24 by Tati Rodriguez CNP naltrexone 25 mg (1/2 x 50 mg) PO DAILY 30 days Tobacco use date assessed: 11/23/24 Dental Screening Dental Screen Date: 11/23/24 Did you have a dental visit in the last 12 months?: Yes Did you have a dental problem in the last 6 months where you did not have access to dental care?: No Was dental information given to patient?: Patient has dentist HPI HPI Comments History of Present Illness Details 64-year-old male presents for an extended physical exam. He notes that he took 1 does of naltrexone, felt nauseous and weird. Have not taking the medication since. He cut down his drinking to 2-3 glasses of wine 2 times weekly. Prior PCP? - Last office visit/CPE/labs - Acute issue(s) - None Past Medical History - Myopia, abdominal pain, Dupuytren's disease of left forearm, alcohol use disorder, nicotine dependence Social History - Smokes 1 cigar daily, h/o multiple years of smoking. Does not vape. Drinks 2-3 glasses of wine 2 times weekly. Denies recreational drug use - Has been making healthy dietary choices. Exercises routinely. Generally sleep well Health maintenance - Last eye exam was a month ago with with Dr. Rajput. Encouraged to sign a release for his PCP to obtain his ophthalmology record - Last dental visit was a month ago - Last tetanus vaccine was more than 10 years ago; received Tdap vaccine today - He notes that he is up-to-date on the flu and shingles vaccine - Last colonoscopy was in 06/24/2023: Hyperplastic mucosal polyp (10 yr f/u recommended) [facility] Medical History No pertinent past medical history Surgical History No pertinent past surgical history Family History Other Substance abuse Social History Household Members Other:: 3 adult children Housing: House Alcohol intake: current Patient Tobacco Use Status: Current everyday Tobacco user Tobacco use type: Cigar e-Cigarette/Vaping Use: Never Used Second Hand Smoke Exposure: No service: No Current occupational status: employed 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 1. Little interest or pleasure in doing things: not at all 2. Feeling down, depressed, or hopeless: not at all 3. Trouble falling or staying asleep, or sleeping too much: not at all 4. Feeling tired or having little energy: not at all 5. Poor appetite or overeating: not at all 6. Feeling bad about yourself - or that you are a failure or have let yourself or your family down: not at all 7. Trouble concentrating on things, such as reading the newspaper or watching television: not at all 8. Moving or speaking so slowly that other people could have noticed. Or the opposite - being so fidgety or restless that you have been moving around a lot more than usual: not at all 9. Thoughts that you would be better off or of hurting yourself in some way: not at all Total score: 0 Depression Screening Interpretation: Negative Depression Screening Done: Yes 10614 - PHQ-9 Billing: Yes Source: Developed by Drs. Lee Pavon, Kim Altamirano, Alonso Thurston and colleagues, with an educational teresita from [employer]. Thrive Questionnaire Date Thrive assessed: 10/12/24 I am a: Patient What is your living situation today?: I have a steady place to live Within the past 12 months, did the food you bought not last and you didn't have the money to get more?: Never true Within the past 12 months, did you worry whether your food would run out before you got money to buy more?: Never true Do you have trouble paying for medicines?: No Do you have trouble getting transportation to medical appointments?: No Do you have trouble paying your heating and electricity bill?: No Do you have trouble taking care of your child, family member or friend?: No Do you have trouble with day-to-day activities such as bathing, preparing meals, shopping, managing finances, etc.?: No Are you currently unemployed and looking for a job?: No Are you interested in more education?: No Please select the resources that you would like help with: None Currently or been in a relationship where the following occur: No concerns reported THRIVE Score: 0 AUDIT C Alcohol Use Questionnaire (AUDIT-C) 1. How often do you have a drink containing alcohol?: 2-3 times a week 2. How many drinks containing alcohol do you have on a typical day when you are drinking?: 1 or 2 3. How often do you have six or more drinks on one occasion?: Monthly Total Score: 5 Score Reviewed/Action Taken: Yes WILLIE-7 AMB Questionnaire WILLIE-7 Date WILLIE - 7 assessed: 11/23/24 Feeling nervous, anxious, or on edge: 0 = Not at all Not being able to stop or control worryin = Not at all Worrying too much about different things: 0 = Not at all Trouble relaxin = Not at all Being so restless that it is hard to sit still: 0 = Not at all Becoming easily annoyed or irritable: 0 = Not at all Feeling afraid as if something awful might happen: 0 = Not at all Total WILLIE-7 score (0-4 normal; 5-9 mild; 10-14 moderate; 15-21 severe): 0 Source: Developed by Drs. Lee Pavon, Kim Altamirano, Alonso Thurston and colleagues, with an educational teresita from [employer]. WILLIE-7 Assessment Billing WILLIE-7 Assessment Tool: WILLIE-7 Assessment 39446 Review of Systems Const Details: Denies chills, Denies fatigue, Denies fever(s), Denies headache(s) and Denies weakness HEENT Denies change in vision, Denies dizziness, Denies headache(s), Denies hearing loss, Denies nasal congestion, Denies sinus pain, Denies sinus pressure and Denies sore throat Card Denies chest pain, Denies lightheadedness, Denies dyspnea and Denies other (palpitations) Resp Denies cough, Denies dyspnea and Denies wheezing GI Denies abdominal pain, Denies melena, Denies hematochezia, Denies change in bowel habits, Denies dyspepsia and Denies nausea Denies hematuria and Denies dysuria Musc Denies abnormal gait, Denies myalgias, Denies arthralgias, Denies numbness and Denies tingling Skin/Breast Denies rash, Denies unusual bruising and Denies wounds Neuro Denies abnormal gait, Denies dizziness, Denies headache(s), Denies memory loss, Denies numbness, Denies Sensory deficit (Neuro), Denies tingling and Denies weakness Psych Denies anxiety, Denies depression and Denies memory loss Endo Denies cold intolerance, Denies fatigue, Denies heat intolerance, Denies polydipsia and Denies polyuria Eladio/Lymph Denies easy bleeding and Denies easy bruising Aller/Immun Denies wheezing Physical exam (Primary Care) Vital Signs: Last Vital Signs Temp 97.8 F 11/23/24 10:22 Pulse 74 11/23/24 10:22 Resp 16 11/23/24 10:22 BP 129/69 11/23/24 10:22 Pulse Ox 98 11/23/24 10:22 Oxygen Delivery Method Room Air 11/23/24 10:22 BMI result Body Mass Index 31.3 Tobacco/Smoking Status: Tobacco use Status Tobacco use date assessed 11/23/24 11/23/24 10:25 Patient Tobacco Use Status Current everyday Tobacco 11/23/24 10:16 Tobacco use type Cigar 11/23/24 10:16 e-Cigarette/Vaping Use Never Used 11/23/24 10:16 PHQ-9: PHQ-9 Score PHQ-9: Total score 0 11/23/24 10:57 Depression Screening Interpretation: Negative Thrive Assessment: Date of Thrive Assessment Date Thrive assessed 10/12/24 11/23/24 10:16 Currently or been in a relationship where the following occur: No concerns reported Const Other: General: no acute distress, well developed, alert and awake Nutritional Appearance: well nourished Orientation/consciousness: patient oriented x3 HENMT Head: Yes normocephalic and Yes atraumatic Ears: hearing grossly normal bilaterally and impacted cerumen of right ear occluding the TM, left TM normal General nose exam: Normal external nose present and Normal nares present Mouth: Normal oral and palatal mucosa present and moist mucous membranes Teeth and gingiva: dentition normal Throat: Yes oropharynx normal Eyes Pupils: Equal, round and reactive pupils present and Pupil accommodation reflex normal EOM: EOMs intact bilaterally Neck Neck: Yes normal visual inspection, Yes no lymphadenopathy and Yes trachea midline Thyroid: Thyroid normal Carotids: no bruits Lymphatic: no lymphadenopathy noted Chest Chest palpation & inspection: normal inspection of the chest Resp Effort & Inspection: normal respiratory effort Auscultation: clear to auscultation bilaterally Cardio Rate: regular rate Rhythm: regular rhythm Heart sounds: S1 normal heart sound present, S2 normal heart sound present, no gallops, no murmurs and no rubs Bruits: no abdominal aortic bruits and no carotid bruits GI Palpation (GI): No Abdominal aortic bruit present, Soft to palpation, nontender, No hepatosplenomegaly present and No Rebound tenderness present Auscultation: normal bowel sounds General: Yes no CVA tenderness Back/Spine/Pelvis Back: no CVA tenderness Cervical Spine: cervical ROM normal and No Cervical spine tenderness Thoracic/Lumbar Spine: thoraco-lumbar ROM normal, No pain with thoraco-lumbar ROM, No thoracic spinal tenderness and No lumbar spinal tenderness Skin General: warm and dry. Normal skin color. Normal skin turgor Lesions: no lesions Rashes: no rashes Trauma: no lacerations or abrasions Wounds: no wounds Nails: normal Neuro General: patient oriented x3, gait normal and CN's II-XI intact bilaterally Cranial nerves: Yes Equal, round and reactive pupils present Cognition (Neuro): normal cognition Gait exam (Neuro): Normal gait present Motor exam (neuro): 5/5 motor strength present throughout Sensory Exam: No Sensory deficit (Neuro) Deep tendon reflexes (DTR's): Right patellar reflex intensity grade: 2+ and Left patellar reflex intensity grade: 2+ Extrem General: Yes normal to inspection, No edema and No calf tenderness Psych Appearance: grossly normal Affect: normal affect Attitude: cooperative Thought process: Normal thought process present Immunizations Boostrix Tdap 2.5 Lf unit-8 mcg-5 Lf/0.5 mL intramuscular syringe Performing Provider: Tati Rodriguez CNP Performing Location[place] [facility] Administered by: Pat Meadows RN on 11/23/24 10:57 Dose Route Admin Location Dispensed Lot Number Expiration Date NDC Hospice Entrance Attendant 0.5 mL IM Left Deltoid 0.5 mL [id number] 01/11/27 [id number] [employer] Total Dispensed Waste 0.5 mL 0 % VIS Given Date VIS Provided VIS Publication Date 11/23/24 Single Vaccine 20 Eligibility Eligibility Date Funding Source Not [facility] Eligible 11/23/24 Private Coding Level of Care Code Est Pt Level 3 (99395) Est Pt Prev Care 40-64y(06205) Diagnoses Physical exam, annual Z00.00 Hypercholesterolemia E78.00 Elevated fasting glucose R73.01 Nicotine dependence F17.200 Impacted cerumen, right ear H61.21 Additional Codes WILLIE-7 Assessment Billing - WILLIE-7 Assessment Tool: WILLIE-7 Assessment 41009 ([id number]) PHQ-9 - 04970 - PHQ-9 Billing: Yes ([id number]) Assessment & Plan Assessment & Plan (1) Physical exam, annual: Code(s): Z00.00 - Encounter for general adult medical examination without abnormal findings Category: Medical Plan: Normal physical exam of a 64-year-old male. No significant functional limitation noted. Healthy diet and routine exercise encouraged. Perform fasting lab work and follow-up for telehealth visit for labs review in 2 months. Return sooner with symptoms or concerns. Verbalized understanding and agreed with the plan. (2) Hypercholesterolemia: Code(s): E78.00 - Pure hypercholesterolemia, unspecified Category: Medical Plan: Recent total cholesterol and LDL are elevated, 222 and 152 respectively. Denies family history of hyperlipidemia. Advised to limit foods high in saturated fat and avoid foods high in trans fat. Routine exercise encouraged. Encouraged to cut down or avoid drinking. Fast for 10-12 hours, may drink water, and perform lipid panel blood work 2-3 days before next visit. Follow-up for telehealth visit in 2 months. Return sooner with symptoms or concerns. Verbalized understanding and agreed with the plan. (3) Elevated fasting glucose: Code(s): R73.01 - Impaired fasting glucose Category: Medical Plan: Recent fasting glucose is slightly elevated, 102. Routine exercise and diet, including low carb encouraged. Will recheck fasting glucose and make changes as needed. Verbalized understanding and agreed with the plan. (4) Nicotine dependence: Code(s): F17.200 - Nicotine dependence, unspecified, uncomplicated Category: Medical Plan: Smokes 1 cigar daily, h/o multiple years of smoking. Instructed on the health risks and complications of nicotine and cessation encouraged. Declines nicotine treatment for smoking cessation at this time. He notes he plans to stopp smoking without treatment. Advised to follow-up as needed. Verbalized understanding and agreed with the plan. (5) Impacted cerumen, right ear: Code(s): H61.21 - Impacted cerumen, right ear Category: Medical Plan: Impacted cerumen of right ear occluding the TM, left TM normal. Debrox as prescribed. Follow-up for right ear irrigation in 1-2 weeks. Verbalized understanding and agreed with the plan. Orders: Orders TDaP Immunization Today Z23 - Encounter for immunization Glucose Fasting 2 Months R73.01 - Impaired fasting glucose Lipid Panel 2 Months E78.00 - Pure hypercholesterolemia, unspecified Medications: New carbamide peroxide 6.5% (Debrox) 5 drps otic (ear) right DAILY 15 mL 0RF 4 days Discontinued naltrexone Discontinued Reason: Patient no longer taking 25 mg (1/2 x 50 mg) PO DAILY 30 days 15 tabs 3RF
[2024-11-23 10:22] VITALS: BP 129/69; PULSE 74; RESP 16; TEMP 36.6; O2SAT 98; BMI 31.3
== END 2024-11-23 11:00 | disposition home or self-care (01) ==
LOC: HO.HMCFM 10:13
PROVIDERS: PCP Nurse Practitioner Family; Visit Provider Nurse Practitioner Family
DX: Z00.00 Encounter for general adult medical examination without abnormal findings (principal); E78.00 Pure hypercholesterolemia, unspecified; R73.01 Impaired fasting glucose; F17.200 Nicotine dependence, unspecified, uncomplicated; H61.21 Impacted cerumen, right ear; Z23 Encounter for immunization

== ENCOUNTER → 2024-11-23 10:12 | Outpatient (BNVA) | payer BC, SELFPAY | PROVIDERS: PCP Nurse Practitioner Family; Visit Provider Nurse Practitioner Family | DX: Z00.00 Encounter for general adult medical examination without abnormal findings (principal); E78.00 Pure hypercholesterolemia, unspecified; R73.01 Impaired fasting glucose; H61.21 Impacted cerumen, right ear; F17.290 Nicotine dependence, other tobacco product, uncomplicated; Z23 Encounter for immunization | CPT/HCPCS: 90471; 90715; 96127 ==

== ENCOUNTER 2025-02-25 08:05 | Outpatient (REF) | payer BC, SELFPAY ==
[2025-02-25 12:02] LABS: Cholesterol 224 mg/dL (<200); HDL Cholesterol 42 mg/dL (>40); Triglycerides 186 mg/dL (<150)
== END 2025-02-25 08:06 | disposition home or self-care (01) ==
LOC: HO.WFDLDS 08:05
PROVIDERS: Visit Provider Nurse Practitioner Family
DX: R73.01 Impaired fasting glucose (principal); E78.00 Pure hypercholesterolemia, unspecified
CPT/HCPCS: 36415; 80061; 82947

== ENCOUNTER 2025-03-04 14:15 | Outpatient (AMB) | payer BC, SELFPAY ==
--- NOTE | 2025-03-04 14:13 | A.OFFPC_ITS ---
Intake Visit Reasons: Tele 2 mos high chol, page [facility] Intake Note: patient here for 2 month Telehealth follow up on high cholesterol, and high [facility] Youth Development Professional Required: No Allergies No Known Allergies Allergy (Verified 03/04/25 14:13) Tobacco use date assessed: 03/04/25 Dental Screening Dental Screen Date: 03/04/25 Did you have a dental visit in the last 12 months?: Yes Did you have a dental problem in the last 6 months where you did not have access to dental care?: No Was dental information given to patient?: Patient has dentist HPI HPI Comments History of Present Illness Details 64-year-old male presents for telehealth visit for elevated fasting glucose and hypercholesterolemia follow-up. He admits to making healthy lifestyle changes. He notes that he has been making healthy lifestyle changes and has lost 8 lb in the last 3 weeks. He offers no complaints and denies acute symptoms at this time. He smokes 1 cigar daily, h/o multiple years of smoking. Requests medication treatment for smoking. 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 Current occupational exposures/hazards: No Cognitive needs: No Hearing needs: No Vision needs: No Questionnaire Thrive Questionnaire Date Thrive assessed: 10/12/24 I am a: Patient What is your living situation today?: I have a steady place to live Within the past 12 months, did the food you bought not last and you didn't have the money to get more?: Never true Within the past 12 months, did you worry whether your food would run out before you got money to buy more?: Never true Do you have trouble paying for medicines?: No Do you have trouble getting transportation to medical appointments?: No Do you have trouble paying your heating and electricity bill?: No Do you have trouble taking care of your child, family member or friend?: No Do you have trouble with day-to-day activities such as bathing, preparing meals, shopping, managing finances, etc.?: No Are you currently unemployed and looking for a job?: No Are you interested in more education?: No Please select the resources that you would like help with: None Currently or been in a relationship where the following occur: No concerns reported THRIVE Score: 0 WILLIE-7 AMB Questionnaire WILLIE-7 Date WILLIE - 7 assessed: 11/23/24 Source: Developed by Drs. Lee Pavon, Kim Altamirano, Alonso Thurston and colleagues, with an educational teresita from [employer]. Review of Systems Const Details: Denies chills, Denies fatigue, Denies fever(s), Denies headache(s) and Denies weakness Cardiac Denies chest pain, Denies claudication, Denies leg edema, Denies lightheadedness, Denies palpitations, Denies dyspnea, Denies dyspnea on exertion, Denies orthopnea and Denies other (Loss of consciousness) Resp Denies cough, Denies excessive phlegm production, Denies dyspnea, Denies dyspnea on exertion, Denies snoring and Denies wheezing Physical exam (Primary Care) Tobacco/Smoking Status: Tobacco use Status Tobacco use date assessed 03/04/25 03/04/25 14:14 Patient Tobacco Use Status Current everyday Tobacco 03/04/25 14:14 Tobacco use type Cigar 03/04/25 14:14 e-Cigarette/Vaping Use Never Used 03/04/25 14:14 Thrive Assessment: Date of Thrive Assessment Date Thrive assessed 10/12/24 03/04/25 14:14 Currently or been in a relationship where the following occur: No concerns reported Const Other: Patient is alert oriented x4 Telehealth Telehealth Telehealth Platform: Telephone Location of provider rendering services: practice address Location of patient: address on file Patient Identification confirmed using: Name, : Yes Telehealth method: voice only Patient verbally consented to treatment: Yes Patient verbally consented to billing insurance company: Yes Patient informed of any privacy concerns related to visit: Yes Coding Level of Care Code Tele Est Pt Level 3 (56239) Diagnoses Hypercholesterolemia E78.00 Elevated fasting glucose R73.01 Nicotine dependence F17.200 Time Spent (min) 10 Assessment & Plan Assessment & Plan (1) Hypercholesterolemia: Code(s): E78.00 - Pure hypercholesterolemia, unspecified Category: Medical Plan: Recent triglyceride, total cholesterol, and LDL levels are elevated, 186, 224, and 145 respectively, previous levels were 107, 222, and 152 respectively. Declines starting statin therapy at this time and notes that he will continue to make healthy lifestyle choices. Advised to limit foods high in saturated fat and avoid foods high in trans fat. Routine exercise encouraged. Fast for 10-12 hours, may drink water, and performed lipid panel blood work a few days before next visit. Follow-up in 2 months for transfer of care with a new provider within the practice. Return sooner with symptoms or concerns. Verbalized understanding and agreed with the plan. (2) Elevated fasting glucose: Code(s): R73.01 - Impaired fasting glucose Category: Medical Plan: Recent fasting glucose is normal, 99. Healthy diet encouraged. Verbalized understanding and agreed with the plan. (3) Nicotine dependence: Code(s): F17.200 - Nicotine dependence, unspecified, uncomplicated Category: Medical Plan: He smokes 1 cigar daily, h/o multiple years of smoking. Requests medication treatment for smoking. Nicotine patch ordered; advised to use as prescribed. Follow-up as needed. Verbalized understanding and agreed with the plan. Orders: Orders Lipid Panel 2 Months E78.00 - Pure hypercholesterolemia, unspecified Medications: New nicotine Apply 14 mg patch daily x6 weeks, then apply 7 mg patch daily x2 weeks 1 patch transdermal Q24H 56 ea 0RF
== END 2025-03-04 14:35 | disposition home or self-care (01) ==
LOC: HO.HMCFM 14:15
PROVIDERS: PCP Nurse Practitioner Family; Visit Provider Nurse Practitioner Family
DX: E78.00 Pure hypercholesterolemia, unspecified (principal); R73.01 Impaired fasting glucose; F17.290 Nicotine dependence, other tobacco product, uncomplicated